=== PATIENT | female | born 1985 | race Caucasian/White ===

== ENCOUNTER 2019-07-07 01:55 | Inpatient (IN) | payer BC ==
[2019-07-07] MEDS ORDERED: Ondansetron 4 MG/2 ML SDV IVPUSH PRN (19:05)
[2019-07-07] MEDS ORDERED: Nalbuphine 10 MG/1 ML Vial IVPUSH PRN (19:05)
[2019-07-07] MEDS ORDERED: Sodium Chloride 0.9% 10 ML Syringe FLUSH PRN (19:05)
[2019-07-07] MEDS ORDERED: Lactated Ringers 1,000 ML IV SCH (19:15)
[2019-07-07] MEDS ORDERED: Oxytocin/Lactated Ringers 10 UNIT/1,000 ML BAG IV SCH ×2 (19:15)
[2019-07-08] MEDS ORDERED: Lidocaine 1% 50 ML MDV ONE (02:01)
[2019-07-08] MEDS ORDERED: Lanolin 100% Cream 7 GM Tube TOP PRN (02:53)
[2019-07-08] MEDS ORDERED: Acetaminophen 325 MG Tab PO PRN (02:53)
[2019-07-08] MEDS ORDERED: Witch Hazel Medicated Pads 40/Jar TOP PRN (02:53)
[2019-07-08] MEDS ORDERED: Docusate Sodium 100 MG Cap PO PRN (02:53)
[2019-07-08] MEDS ORDERED: Benzocaine/Menthol 20%-0.5% Spray 56 GM Canister TOP PRN (02:53)
[2019-07-08] MEDS: Ibuprofen 600 MG Tab PO PRN ×2 (03:31→11:14)
--- NOTE | 2019-07-08 06:08 | PCM.LDHP ---
L&D History of Present Illness - General Date of Service: 07/07/19 Admit Problem/Dx: Admission Diagnosis/Problem Admission Diagnosis/Problem 07/08/19 05:58 Mansi is a 34-year-old 4 para 3003 white female who is admitted on the evening of 07/07/2019 at 39-4/7 weeks gestational age with an MANUEL of 2018 for elective induction of labor. The process of induction, its risks, benefits, alternatives of care and follow-up were discussed in detail with patient. She appears to understand and is given verbal consent. Source of Information: Patient History Limitations: Reports: No Limitations - History of Present Illness Introduction:: Mansi is a 34-year-old 4 para 3003 white female who is admitted on the evening of 07/07/2019 at 39-4/7 weeks gestational age with an MANUEL of 2018 for elective induction of labor. The process of induction, its risks, benefits, alternatives of care and follow-up were discussed in detail with patient. She appears to understand and is given verbal consent. DISPLAYER MERCHANDISE history: Is a 4 para 3003 white female with an MANUEL of 07/08/2019 as determined by a certain laststarting 10/03/2018 and supported by 2 ultrasounds on 12/30/2018 and 03/01/2019. Patient has regular 28 day menses, had menarche at age 13. Her LMP was definite and she is not using any control to time conception. Her previous deliveries include the followin. Male infant born 10/29/2011 at 39 weeks gestational age after 3 hours of labor8 lbs. 14 oz.[facility]. Female born to 2013 at 39 weeks gestational age after 2 and hours and 15 minutes of labor-8 lbs. 7 oz.[facility]'s name [facility] Leonor 3. Male born [id number] weeks and 2 days3 hours [facility] labor9 lbs. [facility]. course: Patient was seen on 12/20/2018 at 11 weeks and 1 day. After that she was seen on a regular basis throughout the . Her weight gain was from 271.2 pounds to 283 pounds. Her fundal height growth was somewhat ahead of schedule but progressed normally. Her vital signs remained stable throughout the course. She is group B strep negative. 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 She declined genetic screening. She declines STI testing. She desires a natural labor and declines epidural. Her [place] depression screening score on 02/16/192018 was 1/30. Did have a flu shot on 07/06/2019. She has history of macrosomic babies. Has a history of rhabdomyolysis. She plans to breast-feed. Did have a UTI during the . laboratory testing shows blood to be O+ with a negative and by screen. First hemoglobin was 13.7 g/dL and platelets are 208,000. She is rubella immune. Urine culture was negative. Patient declined hepatitis B surface antigen and HIV assays. Her chlamydia and gonorrhea. Second trimester testing showed a hemoglobin of 12.6 g/dL and platelets 153,000. One-hour GTT was 117normal repeat platelet count on 06/21/2019 was 130,000. Her hemoglobin was 12.6 g/dL at that time. RPR was nonreactive. Group B strep screen was negative. Allergies: None Medications 1. vitamins 1 daily Past medical history: 1. Normal spontaneous vaginal delivery 3 with 2 children being macrosomic. 2. Rhabdomyolysis October 2015. Past surgical history: Unremarkable. Family history: Sr. with osteogenesis imperfecta. No anesthesia, bleeding, blood clotting problems noted in the family. Social history: Patient is . is Joseph. She is a CPA, she is a college graduate. They live in [place], [place]. She does not use any significant loss of alcohol, drugs or tobacco. Review of systems: In general patient has no complaints. Baby has been active. Skin: Negative Lungs: No infectious symptoms or shortness of breath Cardiovascular: No chest pain or exercise intolerance Breasts: No lumps, changes in size, pain, dimpling, discharge or axillary or supraclavicular concerns. GI: Negative : Negative Musculoskeletal: Negative Neurological: Negative In general the patient is well-developed, well-nourished, overweight female with a pre body mass index of 38.8. She is a pleasant female of stated age in no acute distress. Skin is warm dry without lesions. HEENT, neck and back within normal limits. Lungs are clear with good breath sounds in all lung kim. Cardiovascular exam shows regular and rhythm without murmurs. Breast exam is deferred abdomen first visit on a normal. She does plan to breast-feed. Abdomen is gravid with fundal height of 40.5 cm on last evaluation in clinic on 07/06/2019 Genital cervical exam done on 07/06/2019 in clinic showed cervix to be 2 placentas, 70% effaced, very soft, mid position, -3, AB in vertex presentation. Extremities and neurological exam are grossly within normal limits. Pain Score: 2 - Related Data Allergies/Adverse Reactions: Allergies Allergy/AdvReac Type Severity Reaction Status Date / Time No Known Allergies Allergy Verified 07/07/19 20:47 Home Medications: Home Meds Pnv95/Iron Fum/Folic Acid [ Caplet] 1 each PO DAILY 07/17/16 [History] Past Medical History - Past Health History Medical/Surgical History: Denies Medical/Surgical History Genitourinary History: Reports: Other (See Below) Other Genitourinary History: Hx of rhabdomyolysis DISPLAYER MERCHANDISE History: Reports: Musculoskeletal History: Reports: Other (See Below) Other Musculoskeletal History: Rhabdomymyolysis - Infectious Disease History Infectious Disease History: Reports: Chicken Pox - Past Surgical History Female Surgical History: Reports: None Social & Family History - Family History Family Medical History: Noncontributory - Tobacco Use Smoking Status *Q: Never Smoker Second Hand Smoke Exposure: No - Caffeine Use Caffeine Use: Reports: None - Recreational Drug Use Recreational Drug Use: No H&P Review of Systems - Review of Systems: Review Of Systems: See Below L&D Exam - Exam Exam: See Below - Vital Signs Vital Signs: Last Vital Signs Temp 36.7 C 07/07/19 19:05 Pulse 95 07/07/19 19:05 Resp 14 07/07/19 19:05 BP 136/97 H 07/07/19 19:05 Pulse Ox 97 07/07/19 19:05 Weight: 128.367 kg - Patient Data Lab Results Last 24 hrs: Laboratory Results - last 24 hr 07/07/19 07/07/19 Range/Units 19:16 19:16 WBC 12.22 H (3.98-10.04) K/mm3 RBC 4.34 (3.98-5.22) M/mm3 Hgb 13.3 (11.2-15.7) gm/dl Hct 38.2 (34.1-44.9) % MCV 88.0 (79.4-94.8) fl MCH 30.6 (25.6-32.2) pg MCHC 34.8 (32.2-35.5) g/dl RDW Std Deviation 46.5 H (36.4-46.3) fL Plt Count 133 L (182-369) K/mm3 MPV 12.5 H (9.4-12.3) fl Neut % (Auto) 68.3 (34.0-71.1) % Lymph % (Auto) 22.5 (19.3-51.7) % [place] % (Auto) 8.0 (4.7-12.5) % Eos % (Auto) 1.1 (0.7-5.8) Baso % (Auto) 0.1 (0.1-1.2) % Neut # (Auto) 8.35 H (1.56-6.13) K/mm3 Lymph # (Auto) 2.75 (1.18-3.74) K/mm3 [place] # (Auto) 0.98 H (0.24-0.36) K/mm3 Eos # (Auto) 0.13 (0.04-0.36) K/mm3 Baso # (Auto) 0.01 (0.01-0.08) K/mm3 Manual Slide Review Normal smear RPR Non-reactive (NONREACTIVE) Result Diagrams: 07/07/19 19:16 Problem List Initiated/Reviewed/Updated: Yes Orders Last 24hrs: Active Orders 24 hr Category Date Time Status Activity as Tolerated [RC] PER UNIT ROUTINE Care 07/08/19 02:53 Active Vital Signs [RC] 03,09,15,21 Care 07/08/19 02:53 Active Regular Diet [DIET] Diet 07/08/19 Dinner Active BLOOD BANK HOLD SPECIMEN [BBK] Stat Lab 07/07/19 19:16 Received Acetaminophen [Tylenol] Med 07/08/19 02:53 Active 650 mg PO Q4H PRN Benzocaine/Menthol [Dermoplast Pain Relief [place]] Med 07/08/19 02:53 Active See Dose Instructions TOP ASDIRECTED PRN Docusate Sodium [Colace] Med 07/08/19 02:53 Active 100 mg PO BID PRN Ibuprofen [Motrin] Med 07/08/19 02:53 Active 600 mg PO Q4H PRN Lanolin [Lansinoh HPA] Med 07/08/19 02:53 Active See Dose Instructions TOP ASDIRECTED PRN Vit with Ca/FA/Iron [ Plus Iron] Med 07/08/19 09:00 Active 1 each PO DAILY Witch Deisy [Tucks] Med 07/08/19 02:53 Active 1 pad TOP ASDIRECTED PRN Assess Lochia [WOMSER] Per Unit Routine Oth 07/08/19 02:53 Ordered Assess Uterine Involution [WOMSER] Per Unit Routine Oth 07/08/19 02:53 Ordered Breast Pump [WOMSER] Per Unit Routine Oth 07/08/19 02:53 Ordered Heat Therapy [OM.PC] PRN Oth 07/08/19 02:53 Ordered Heat Therapy [OM.PC] PRN Oth 07/09/19 02:53 Ordered Ice Therapy [OM.PC] Per Unit Routine Oth 07/08/19 02:53 Ordered Medication Administration Instruction [OM.PC] Routine Oth 07/08/19 02:53 Ordered Perineal Care [OM.PC] Per Unit Routine Oth 07/08/19 02:53 Ordered Sitz Bath [OM.PC] Per Unit Routine Oth 07/08/19 02:53 Ordered Resuscitation Status Routine Resus Stat 07/07/19 19:05 Ordered Medication Orders Acetaminophen (Tylenol) 650 mg PO Q4H PRN PRN Reason: mild pain or fever Benzocaine/Menthol (Dermoplast Pain Relief [place]) 0 gm TOP ASDIRECTED PRN PRN Reason: Perineal Comfort Measure Last Admin: 07/08/19 03:32 Dose: 1 can Docusate Sodium (Colace) 100 mg PO BID PRN PRN Reason: Constipation Emollient Ointment (Lansinoh Hpa) 0 gm TOP ASDIRECTED PRN PRN Reason: Sore Nipples Ibuprofen (Motrin) 600 mg PO Q4H PRN PRN Reason: Mild pain or fever Last Admin: 07/08/19 03:31 Dose: 600 mg Prenat Multivit/[place]/Iron/Folic Ac ( Plus Iron) 1 each PO DAILY MARLENI [place] (Tucks) 1 pad TOP ASDIRECTED PRN PRN Reason: Pain Last Admin: 07/08/19 03:31 Dose: 1 tub Assessment/Plan Comment:: 1.39-4/7 week intrauterine on admission for elective induction of labor with an MANUEL of 07/10/2019 2. Risk factors for the including increased weight, history of macrosomic infants 2 3. She desires natural labor. She declines epidural analgesia in labor. 4. Patient plans to breast-feed 5. Patient declined testing Plan: 1. Artificial rupture membranes induction with Pitocin if indicated. 2. Support breast-feeding incision 3. Routine labor care 4. RPR, CBC upon admission.
--- NOTE | 2019-07-08 06:13 | PCM.SN ---
- Free Text/Narrative Note: Delivery note: Mansi is a 34-year-old 4 para 3003 white female who is admitted on the evening of 07/07/2019 at 39-4/7 weeks gestational age with an MANUEL of 2018 for elective induction of labor. The process of induction, its risks, benefits, alternatives of care and follow-up were discussed in detail with patient. She appears to understand and is given verbal consent. She underwent artificial rupture membranes with resultant clear amniotic fluid. Patient progressed slowly but steadily towards cervical dilation. She delivered a viable, jacobs, 7 pound 11.5 ounce Francies 3500 g) female with Apgars of 8 and 9, length of 21.5 inches in a right occiput anterior position at 0155 hrs. on 07/08/2019. The umbilical cord had H would not within the cord and there was nuchal cord 1 which was loose and was reduced over the baby's head. The cord was allowed to pulsate for approximately 2 minutes and was clamped 2 and cut by the baby's father. Cord had 3 vessels present. Cord blood was obtained. Baby was placed on mom's abdomen. Nose and mouth were bulb suctioned. The Pitocin per IV was increased to 500 mL an hour to facilitate increased uterine tone and decrease likelihood of bleeding. Patient was noted to have a second-degree laceration which was repaired using 3- 0 Monocryl in a routine fashion after infiltration with approximately 15 mL of 1 % lidocaine. She tolerated this well. The placenta delivered in a Mcnulty presentation,. Intact and complete and was discarded per patient desire. Estimated blood loss was 200 mL. Condition: Good. Patient plans to breast-feed.
[2019-07-08] MEDS: Prenatal Multivitamin with Calcium/Folic Acid/Iron Tab PO SCH (08:02)
--- NOTE | 2019-07-09 07:32 | PCM.SN ---
- Free Text/Narrative Note: Post Progress Note PPD # 1 Subjective: Doing well overall. Ambulating without difficulty. Lochia minimal. Voiding without difficulty. Tolerating regular diet without nausea or vomiting. Pain controlled with oral medications. Breast-feeding with minimal difficulty. Objective: Vitals: Vital Signs - 24 hr 07/08/19 07/08/19 07/08/19 08:01 13:11 20:07 Temperature 36.9 C 36.5 C 36.8 C Pulse, 64 60 65 Peripheral Respiratory 16 16 14 Rate Blood Pressure 131/64 132/83 119/64 O2 Sat by Pulse 99 99 99 Oximetry 07/09/19 03:18 Temperature Pulse, 62 Peripheral Respiratory 15 Rate Blood Pressure 132/71 O2 Sat by Pulse 99 Oximetry Physical Exam General: Alert and oriented, no acute distress Lungs: Clear to auscultation bilaterally Heart: Regular rate and rhythm Abdomen: Soft, minimal appropriate tenderness, non-distended, fundus midline, nontender, and one finger breadth below the umbilicus Extremities: Trace bilateral lower extremity edema to mid shins Laboratory Tests 07/07/19 07/07/19 07/07/19 Range/Units 19:16 19:16 19:16 WBC 12.22 H (3.98-10.04) K/mm3 RBC 4.34 (3.98-5.22) M/mm3 Hgb 13.3 (11.2-15.7) gm/dl Hct 38.2 (34.1-44.9) % MCV 88.0 (79.4-94.8) fl MCH 30.6 (25.6-32.2) pg MCHC 34.8 (32.2-35.5) g/dl RDW Std Deviation 46.5 H (36.4-46.3) fL Plt Count 133 L (182-369) K/mm3 MPV 12.5 H (9.4-12.3) fl Neut % (Auto) 68.3 (34.0-71.1) % Lymph % (Auto) 22.5 (19.3-51.7) % [place] % (Auto) 8.0 (4.7-12.5) % Eos % (Auto) 1.1 (0.7-5.8) Baso % (Auto) 0.1 (0.1-1.2) % Neut # (Auto) 8.35 H (1.56-6.13) K/mm3 Lymph # (Auto) 2.75 (1.18-3.74) K/mm3 [place] # (Auto) 0.98 H (0.24-0.36) K/mm3 Eos # (Auto) 0.13 (0.04-0.36) K/mm3 Baso # (Auto) 0.01 (0.01-0.08) K/mm3 Manual Slide Review Normal smear RPR Non-reactive (NONREACTIVE) Hep Bs Antigen Nonreactive (NONREACTIVE) ASSESSMENT: 34-year-old female s/p normal vaginal delivery PPD #1, complicated by history of rhabdomyolysis prior to PLAN: Doing well Breast-feeding with minimal difficulty. Assist as needed Lochia minimal. Continue to monitor for appropriate lochia. Continue routine care Anticipate discharge home today Will Taveras MD 7:31 AM 07/09/2019
--- NOTE | 2019-07-09 07:38 | PCM.DCSUM1 ---
Discharge Summary - Hospital Course Free Text/Narrative:: Delivery note: Mansi is a 34-year-old 4 para 3003 white female who is admitted on the evening of 07/07/2019 at 39-4/7 weeks gestational age with an MANUEL of 2018 for elective induction of labor. The process of induction, its risks, benefits, alternatives of care and follow-up were discussed in detail with patient. She appears to understand and is given verbal consent. She underwent artificial rupture membranes with resultant clear amniotic fluid. Patient progressed slowly but steadily towards cervical dilation. She delivered a viable, jacobs, 7 pound 11.5 ounce Francies 3500 g) female with Apgars of 8 and 9, length of 21.5 inches in a right occiput anterior position at 0155 hrs. on 07/08/2019. The umbilical cord had H would not within the cord and there was nuchal cord 1 which was loose and was reduced over the baby's head. The cord was allowed to pulsate for approximately 2 minutes and was clamped 2 and cut by the baby's father. Cord had 3 vessels present. Cord blood was obtained. Baby was placed on mom's abdomen. Nose and mouth were bulb suctioned. The Pitocin per IV was increased to 500 mL an hour to facilitate increased uterine tone and decrease likelihood of bleeding. Patient was noted to have a second-degree laceration which was repaired using 3- 0 Monocryl in a routine fashion after infiltration with approximately 15 mL of 1 % lidocaine. She tolerated this well. The placenta delivered in a Mcnulty presentation,. Intact and complete and was discarded per patient desire. Estimated blood loss was 200 mL. Condition: Good. Patient plans to breast-feed. HPI Initial Comments: Delivery note: Mansi is a 34-year-old 4 para 3003 white female who is admitted on the evening of 07/07/2019 at 39-4/7 weeks gestational age with an MANUEL of 2018 for elective induction of labor. The process of induction, its risks, benefits, alternatives of care and follow-up were discussed in detail with patient. She appears to understand and is given verbal consent. She underwent artificial rupture membranes with resultant clear amniotic fluid. Patient progressed slowly but steadily towards cervical dilation. She delivered a viable, jacobs, 7 pound 11.5 ounce Francies 3500 g) female infant with Apgars of 8 and 9, length of 21.5 inches in a right occiput anterior position at 0155 hrs. on 07/08/2019. The umbilical cord had H would not within the cord and there was nuchal cord 1 which was loose and was reduced over the baby's head. The cord was allowed to pulsate for approximately 2 minutes and was clamped 2 and cut by the baby's father. Cord had 3 vessels present. Cord blood was obtained. Baby was placed on mom's abdomen. Nose and mouth were bulb suctioned. The Pitocin per IV was increased to 500 mL an hour to facilitate increased uterine tone and decrease likelihood of bleeding. Patient was noted to have a second-degree laceration which was repaired using 3- 0 Monocryl in a routine fashion after infiltration with approximately 15 mL of 1 % lidocaine. She tolerated this well. The placenta delivered in a Mcnulty presentation,. Intact and complete and was discarded per patient desire. Estimated blood loss was 200 mL. Condition: Good. Patient plans to breast-feed. Brief History: Delivery note: Mansi is a 34-year-old 4 para 3003 white female who is admitted on the evening of 07/07/2019 at 39-4/7 weeks gestational age with an MANUEL of 07/10/2019 for elective induction of labor. The process of induction, its risks, benefits, alternatives of care and follow-up were discussed in detail with patient. She appears to understand and is given verbal consent. She underwent artificial rupture membranes with resultant clear amniotic fluid. Patient progressed slowly but steadily towards cervical dilation. She delivered a viable, jacobs, 7 pound 11.5 ounce Francies 3500 g ) female with Apgars of 8 and 9, length of 21.5 inches in a right occiput anterior position at 0155 hrs. on 07/08/2019. The umbilical cord had H would not within the cord and there was nuchal cord 1 which was loose and was reduced over the baby's head. The cord was allowed to pulsate for approximately 2 minutes and was clamped 2 and cut by the baby's father. Cord had 3 vessels present. Cord blood was obtained. Baby was placed on mom's abdomen. Nose and mouth were bulb suctioned. The Pitocin per IV was increased to 500 mL an hour to facilitate increased uterine tone and decrease likelihood of bleeding. Patient was noted to have a second-degree laceration which was repaired using 3- 0 Monocryl in a routine fashion after infiltration with approximately 15 mL of 1 % lidocaine. She tolerated this well. The placenta delivered in a Mcnulty presentation,. Intact and complete and was discarded per patient desire. Estimated blood loss was 200 mL. Condition: Good. Patient plans to breast-feed. Diagnosis: Stroke: No - Discharge Data Discharge Date: 07/09/19 Discharge Disposition: Home, Self-Care 01 Condition: Good - Referral to Home Health Primary Care Physician: Harvinder Tello MD - Discharge Diagnosis/Problem(s) (1) 39 weeks gestation of SNOMED Code(s): 74258388 ICD Code: Z3A.39 - 39 WEEKS GESTATION OF Status: Acute Current Visit: Yes (2) Vaginal delivery SNOMED Code(s): 311543357 ICD Code: O80 - ENCOUNTER FOR FULL-TERM UNCOMPLICATED DELIVERY Status: Acute Current Visit: Yes (3) Second degree perineal laceration during delivery SNOMED Code(s): 6249178 ICD Code: O70.1 - SECOND DEGREE PERINEAL LACERATION DURING DELIVERY Status : Acute Current Visit: Yes - Patient Summary/Data Complications: None Consults: None Hospital Course: Ramonita Hernandez was admitted for elective induction of labor. On admission her cervix was dilated to 2 cm. She was GBS negative. She was given pitocin for augmentation. She had artificial rupture of membranes with clear fluid. She progressed to complete and began pushing. On 07/08/2019 she had a normal vaginal delivery of a live female at 01:55. Apgars of 8 and 9. Weight of 3500 g (7 pounds 11.5 ounces). Her course was uneventful. Her pain was well controlled and she had minimal lochia. She was ambulating, tolerating a regular diet and voiding normally. She was breast-feeding with minimal difficulty. She was afebrile and her hematocrit was 38.2 on admission. She desired to be discharged home on the morning of PPD #1. Her blood type is O+. - Patient Instructions Diet: Regular Diet as Tolerated Activity: Apply Ice, As Tolerated Activity, Other: Nothing in the vagina for 6 weeks Driving: May Drive Today Showering/Bathing: May Shower Notify Provider of: Fever, Increased Pain, Swelling and Redness, Drainage, Nausea and/or Vomiting Other/Special Instructions: Please contact your physician's office if you have heavy vaginal bleeding enough to soak a pad in less than an hour for several hours. Monitor for any signs of an infection in the breasts with severe pain or redness of the breast. - Discharge Plan *PRESCRIPTION DRUG MONITORING PROGRAM REVIEWED*: Not Applicable *COPY OF PRESCRIPTION DRUG MONITORING REPORT IN PATIENT [place]YLER: Not Applicable Home Medications: Home Meds Pnv95/Iron Fum/Folic Acid [ Caplet] 1 each PO DAILY 07/17/16 [History] Acetaminophen [Tylenol] 650 mg PO Q6H PRN tablet 07/09/19 [Rx] Benzocaine/Menthol [Dermoplast Pain Relief [place]] 1 spray TOP ASDIRECTED PRN canister 07/09/19 [Rx] Docusate Sodium [Colace] 100 mg PO BID PRN cap 07/09/19 [Rx] Ibuprofen [Motrin] 600 mg PO Q6H PRN tablet 07/09/19 [Rx] Lanolin [Lansinoh HPA] 1 applic TOP ASDIRECTED PRN tube 07/09/19 [Rx] Witch Deisy [Tucks] 1 pad TOP ASDIRECTED PRN pad 07/09/19 [Rx] Patient Handouts: Vaginal Delivery, Care After, Care of a Perineal Tear - Discharge Summary/Plan Comment DC Time >30 min.: No - Patient Data Vitals - Most Recent: Last Vital Signs Temp 36.8 C 07/08/19 20:07 Pulse 62 07/09/19 03:18 Resp 15 07/09/19 03:18 BP 132/71 07/09/19 03:18 Pulse Ox 99 07/09/19 03:18 Weight - Most Recent: 128.367 kg I&O - Last 24 hours: Intake & Output 07/08/19 07/09/19 07/09/19 22:59 06:59 14:59 Intake Total 680 Balance 680 Lab Results - Last 24 hrs: Laboratory Results - last 24 hr 07/07/19 Range/Units 19:16 Hep Bs Antigen Nonreactive (NONREACTIVE) Med Orders - Current: Current Medications Acetaminophen (Tylenol) 650 mg PO Q4H PRN PRN Reason: mild pain or fever Benzocaine/Menthol (Dermoplast Pain Relief [place]) 0 gm TOP ASDIRECTED PRN PRN Reason: Perineal Comfort Measure Last Admin: 07/08/19 03:32 Dose: 1 can Docusate Sodium (Colace) 100 mg PO BID PRN PRN Reason: Constipation Emollient Ointment (Lansinoh Hpa) 0 gm TOP ASDIRECTED PRN PRN Reason: Sore Nipples Ibuprofen (Motrin) 600 mg PO Q4H PRN PRN Reason: Mild pain or fever Last Admin: 07/08/19 11:14 Dose: 600 mg Prenat Multivit/[place]/Iron/Folic Ac ( Plus Iron) 1 each PO DAILY MARLENI Last Admin: 07/08/19 08:02 Dose: 1 each Witch Deisy (Tucks) 1 pad TOP ASDIRECTED PRN PRN Reason: Pain Last Admin: 07/08/19 03:31 Dose: 1 tub Discontinued Medications Lactated Ringer's (Ringers, Lactated) 1,000 mls @ 100 mls/hr IV ASDIRECTED MARLENI Last Admin: 07/07/19 23:58 Dose: 100 mls/hr Oxytocin/Lactated Ringer's (Pitocin In Lr 10 Units/1,000 Ml) 10 unit in 1,000 mls @ 500 mls/hr IV .CONTINUOUS MARLENI Last Admin: 07/08/19 02:03 Dose: 500 mls/hr Oxytocin/Lactated Ringer's (Pitocin In Lr 10 Units/1,000 Ml) 10 unit in 1,000 mls @ 12 mls/hr IV TITRATE MARLENI; Protocol Last Titration: 07/08/19 00:56 Dose: 6 munits/min, 36 mls/hr Lidocaine HCl (Xylocaine 1%) Confirm Administered Dose 50 ml .ROUTE .STK-MED ONE Stop: 07/08/19 02:02 Last Admin: 07/08/19 03:19 Dose: 50 ml Nalbuphine HCl (Nubain) 10 mg IVPUSH Q2H PRN PRN Reason: Pain Ondansetron HCl (Zofran) 4 mg IVPUSH Q4H PRN PRN Reason: Nausea/Vomiting Sodium Chloride (Saline Flush) 10 ml FLUSH ASDIRECTED PRN PRN Reason: Keep Vein Open
[2019-07-09 10:10] VITALS: BP 120/68; PULSE 77
[2019-07-09] MEDS: Prenatal Multivitamin with Calcium/Folic Acid/Iron Tab PO SCH (10:13)
== END 2019-07-09 12:00 | disposition home or self-care (01) | DRG 560 ==
LOC: JD.OB 01:55 → OBSVTOIN 07-08 01:55 → JD.OB 07-08 01:56
PROVIDERS: ADMIT Obstetrics & Gynecology; ATTEND Obstetrics & Gynecology
PROC: 10E0XZZ Delivery of Products of Conception, External Approach (ICD-10-PCS; principal; 2019-07-08)
PROC: 10907ZC Drainage of Amniotic Fluid, Therapeutic from Products of Conception, Via Natural or Artificial Opening (ICD-10-PCS; 2019-07-08)
PROC: 0KQM0ZZ Repair Perineum Muscle, Open Approach (ICD-10-PCS; 2019-07-08)
DX: O69.81X0 Labor and delivery complicated by cord around neck, without compression, not applicable or unspecified (principal); O70.1 Second degree perineal laceration during delivery; Z3A.39 39 weeks gestation of pregnancy; Z37.0 Single live birth
CPT/HCPCS: 36415; 59025; 59409; 85025; 86592; 87340; A9270-GY; J2001; J2590; J7120